=== PATIENT | male | born 1970 | race Caucasian/White ===

== ENCOUNTER 2022-02-02 18:06 | Observation (INO) | payer MEDICARE, SELFPAY ==
[2022-02-02] VITALS (20 sets, daily range): BP systolic 121–146; BP diastolic 65–96; PULSE 67–101; RESP 12–24; TEMP 36.6; O2SAT 96–100
--- NOTE | ~2022-02-02 | XR_ITS ---
EXAMINATION: XR chest 2V DATE: 02/02/2022 18:43 INDICATION: Chest pain. Syncope. TECHNIQUE: Frontal and lateral views of the chest were obtained. COMPARISON: None. FINDINGS: There is mild atelectasis in the lower lung zones. No pleural effusion or pneumothorax. The heart size is normal. IMPRESSION: 1. Mild atelectasis in the lower lung zones. Reviewed, dictated and finalized at location E.
--- NOTE | ~2022-02-02 | CT_ITS ---
EXAMINATION: CTA chest abdomen pelvis DATE: 02/02/2022 22:15 INDICATION: Transient alteration of awareness, chest pressure, abdominal pain TECHNIQUE: Computed tomographic angiography (CTA) of the chest, abdomen, and pelvis was performed wit h 100 mL Omnipque-350 intravenous contrast. Maximum intensity projection 3D-reconstructions of the ao rta and other arteries were constructed by the technologist on a separate workstation. The dose-lengt h product (DLP) was 471.54 mGy-cm. Automated exposure control and iterative reconstruction technique were employed. COMPARISON: None. FINDINGS: CHEST CTA: There is no aneurysm or dissection of the thoracic aorta. There are is mild dependent atelectasis. No pleural effusion or pneumothorax. The lungs are free of focal airspace opacities. No pathologically enlarged thoracic lymph nodes are identified. The heart size is normal. ABDOMEN AND PELVIS CTA: There is no aneurysm or dissection of the abdominal aorta. The celiac axis, superior mesenteric arter y, and inferior mesenteric artery are normal at their origins. The common hepatic artery arises from the superior mesenteric artery. Although limited by respiratory motion, the pancreaticoduodenal arter y also appears to branch from the common hepatic artery. There are single renal arteries. The common iliac, external iliac, and internal iliac arteries are unremarkable. The liver, spleen, pancreas, gal lbladder, and adrenal glands are normal. The kidneys are unremarkable. No pathologically enlarged abd ominal or pelvic lymph nodes are identified. There is no free intraperitoneal gas or evidence of sydnee l obstruction. IMPRESSION: 1. No aneurysm or dissection of the thoracic or abdominal aorta. No acute abnormality of the chest, a bdomen, or pelvis. Reviewed, dictated and finalized at location F. IMPRESSION: 1. No aneurysm or dissection of the thoracic or abdominal aorta. No acute abnor mality of the chest, abdomen, or pelvis.
--- NOTE | ~2022-02-02 | US_ITS ---
EXAMINATION: US carotid duplex BI DATE: 02/03/2022 11:04 INDICATION: Syncopal episode TECHNIQUE: Grayscale, color Doppler, and pulsed Doppler images of the cervical carotid arteries were obtained. The degree of vessel stenosis is placed in one of the following categories: normal, <50%, 5 0-69%, >=70% but less than near-occlusion, near-occlusion, or total occlusion. Note that percent sten osis relative to normal distal artery lumen diameter is indirectly measured from velocity measurement s as described by Sabino, et al. Radiology 2003; 229:340-346. COMPARISON: None. FINDINGS: RIGHT: The right common carotid artery (CCA) peak systolic velocity (PSV) is 133 cm/s. The right internal ca rotid artery (ICA) PSV is 123 cm/s. The right ICA end-diastolic velocity (EDV) is 15 cm/s. The right ICA/CCA PSV ratio is 0.9. Grayscale and color Doppler images yield an estimate of <50% diameter reduc tion from small amount of plaque in the ICA. The external carotid artery (ECA) PSV is 110 cm/s. There is antegrade flow in the right vertebral artery. LEFT: The left CCA PSV is 149 cm/s. The left ICA PSV is 98 cm/s. The left ICA EDV is 23 cm/s. The left ICA/ CCA PSV ratio is 0.7. Grayscale and color Doppler images yield an estimate of <50% diameter reduction from minimal plaque in the ICA. The ECA PSV is 104 cm/s. There is antegrade flow in the left vertebr al artery. IMPRESSION: 1. <50% stenosis from small amount of plaque in the right internal carotid artery. 2. <50% stenosis from minimal plaque in the left internal carotid artery. Reviewed, dictated and finalized at location A. IMPRESSION: 1. <50% stenosis from small amount of plaque in the right internal carotid debby ry. 2. <50% stenosis from minimal plaque in the left internal carotid artery.
--- NOTE | 2022-02-02 18:13 | ECG_ITS ---
Measurements Intervals [place] Rate: 63 P: -10 UT: 123 QRS: 3 QRSD: 89 T: 15 QT: 406 QTc: 418 Interpretive Statements SINUS RHYTHM BORDERLINE T WAVE ABNORMALITY- INFERIOR LEADS BORDERLINE ECG NO PREVIOUS ECG AVAILABLE FOR COMPARISON Electronically Signed On 02-02-2022 21:00:37 CDT by Mani Green D.O.
[2022-02-02 19:00] LABS: Basophils Absolute Auto 0.1 K/mm3 (0.0-0.1); Basophils Percent Auto 2.7 % (0.2-1.2); Eosinophils Absolute Auto 0.1 K/mm3 (0-0.3); Eosinophils Percent Auto 1.2 % (0-4.4); Hematocrit 45.6 % (42.0-52.0); Hemoglobin 14.9 g/dL (14.0-18.0); Immature Granulocyte Absolute 0.02 K/mm3 (0.00-0.031); Immature Granulocyte Percent A 0.4 % (0-0.5); Lymphocytes Percent Auto 23.1 % (18.3-44.2); Mean Corpuscular HGB Conc 32.7 g/dl (32-36); Mean Corpuscular Hemoglobin 32.5 pg (26-34); Mean Corpuscular Volume 99.3 fl (80-100); Mean Platelet Volume 10.5 fl (7.4-10.4); Monocytes Absolute Auto 0.5 K/mm3 (0.1-0.6); Monocytes Percent Auto 9.4 % (2.6-8.5); Neutrophils Absolute Auto 3.3 K/mm3 (1.3-6.7); Neutrophils Percent Auto 63.2 % (45.5-73.1); Platelet Count Result 250 k/mm3 (150-375); Red Blood Count 4.59 M/mm3 (4.6-6.20); Red Cell Distribution Width 14.1 % (11.5-14.5); White Blood Count 5.2 K/mm3 (4.5-10.0)
[2022-02-02 19:10] LABS: Alanine Aminotransferase 23 U/L (6-50); Albumin Level 4.2 g/dL (3.5-5.1); Alkaline Phosphatase 111 U/L (38-126); Anion Gap 8 mmol/L (8-16); Aspartate Amino Transferase 23 U/L (17-59); Bilirubin,Total 0.5 mg/dL (0.2-1.3); Blood Urea Nitrogen 19 mg/dL (9-20); Calcium 9.2 mg/dL (8.4-10.2); Carbon Dioxide 27 mmol/L (22-30); Chloride 107 mmol/L (98-107); Estimated CRCL calculation 41 ml/min; Estimated Glomerular Filt Rate 49; Glucose 127 mg/dL (65-110); Lipase 169 U/L (23-300); Potassium 3.8 mmol/L (3.4-5.0); Sodium 142 mmol/L (137-145)
[2022-02-02 19:16] LABS: Prothrombin Time 13.2 Seconds (11.1-14.7)
[2022-02-02 19:17] LABS: Partial Thromboplastin Time 27.7 SECONDS (22.3-36.8)
[2022-02-02 19:20] LABS: Troponin I < 0.012 ng/mL (0.000-0.034)
--- NOTE | 2022-02-02 19:20 | ED.CHESTPAIN ---
HPI - Chest Pain General Chief Complaint: Chest Pain Stated Complaint: CP Time Seen by Provider: 02/02/22 18:57 History of Present Illness HPI narrative: This is a 51-year-old male past medical history of Down syndrome and gout, brought in by EMS for episode of syncope and chest pain. The patient's father who is at bedside states this morning the patient appeared to be his normal self, waking after a nap, the patient emerged from his room appeared diaphoretic, complaining of chest pain and lost consciousness. Patient has since then been complaining of chest pain. Related Data Allergies Allergy/AdvReac Type Severity Reaction Status Date / Time Contrast Media Allergy Intermediate Unknown Uncoded 02/02/22 18:21 Review of Systems Review of Systems: CONSTITUTIONAL: Denies fever, chills, or sweats. CARDIOVASCULAR: chest pain Denies palpitations, or edema. RESPIRATORY: Denies cough or dyspnea. GASTROINTESTINAL: abdominal pain, Denies nausea, vomiting, or diarrhea. GENITOURINARY: Denies dysuria or hematuria. SKIN: Denies rash or itching. MUSCULOSKELETAL: Denies back pain, joint pain, or myalgia. NEUROLOGIC: Denies headache, numbness, dizziness, or weakness. PSYCHIATRIC: Denies anxiety or depression. Exam Narrative: GENERAL: Appears tired, well-nourished, and in no acute distress. HEAD: Normocephalic, atraumatic. EYES: Left pupil 4 mm, right pupil 2, pupils reactive to light and accommodation, EOMI. ENT: Nares clear, no rhinorrhea or epistaxis. Mucous membranes moist. Oropharynx without tonsillar hypertrophy exudate or other lesions. NECK: Supple. No adenopathy or masses. No carotid bruits or JVD CHEST: Clear to auscultation. No respiratory distress. No wheezes rales or rhonchi HEART: Regular rate and rhythm. No murmur heard. Normal peripheral pulses. ABDOMEN: Soft, nontender, nondistended, normal active bowel sounds. EXTREMITIES: Normal range of motion. No edema. SKIN: Warm, dry, no rash. NEURO: No focal deficits. Alert and oriented x3. PSYCH: Normal mood and affect. Course Course Emergency Course: 22:41 - CT angio negative for dissection or aneurysm. Initial troponin negative. 23:10 - Repeat troponin negative. Discussed findings with the patient's father who is comfortable with admission. Discussed patient with hospitalist, CUSTOMS MANAGER Cris, who accepts admission. Vital Signs Vital signs: Vital Signs Temperature 97.9 F 02/02/22 18:09 Pulse Rate 76 02/02/22 18:09 Respiratory Rate 24 H 02/02/22 18:09 Blood Pressure 126/81 02/02/22 18:09 Pulse Oximetry 96 02/02/22 18:09 Oxygen Delivery Room Air 02/02/22 18:09 Temperature 97.9 F 02/02/22 18:09 Pulse Rate 101 H 02/02/22 23:01 Respiratory Rate 24 H 02/02/22 23:01 Blood Pressure 142/89 H 02/02/22 23:01 Pulse Oximetry 100 02/02/22 20:46 Oxygen Delivery Room Air 02/02/22 18:09 MDM - Chest Pain MDM Narrative Medical decision making narrative: Plan: Labs, imaging, ECG, troponin, reassess Differential Diagnosis Differential diagnosis: Likely atypical chest pain, st elevation myocardial infarction, chest pain and other (PE, dissection, other) Lab Data Result diagrams: 02/02/22 18:52 02/02/22 18:52 Labs: Lab Results 02/02/22 02/02/22 02/02/22 Range/Units 18:52 18:52 18:52 WBC 5.2 (4.5-10.0) K/mm3 RBC 4.59 L (4.6-6.20) M/mm3 Hgb 14.9 (14.0-18.0) g/dL Hct 45.6 (42.0-52.0) % MCV 99.3 (80-100) fl MCH 32.5 (26-34) pg MCHC 32.7 (32-36) g/dl RDW 14.1 (11.5-14.5) % Plt Count 250 (150-375) k/mm3 MPV 10.5 H (7.4-10.4) fl Immature Gran % (Auto) 0.4 (0-0.5) % Neut % (Auto) 63.2 (45.5-73.1) % Lymph % (Auto) 23.1 (18.3-44.2) % [place] % (Auto) 9.4 H (2.6-8.5) % Eos % (Auto) 1.2 (0-4.4) % Baso % (Auto) 2.7 H (0.2-1.2) % Lymph # (Auto) 1.20 (0.9-3.2) K/mm3 [place] # (Auto) 0.5 (0.1-0.6) K/mm3 Eos # (Auto) 0.1 (0-0.3) K/mm3 Baso
[2022-02-02] MEDS: methylPREDNISolone SOD SUCC 40 MG VIAL IV PUSH (19:54)
[2022-02-02] MEDS: diphenhydrAMINE HCl INJ 50 MG/ML VIAL IV PUSH (19:54)
[2022-02-02 22:45] LABS: Troponin I < 0.012 ng/mL (0.000-0.034)
--- NOTE | 2022-02-02 23:16 | PM.IMHP ---
H&P: HPI History of Present Illness Date/Time: 02/02/22 23:16 Chief Complaint: Chest pain Narrative: This is a 51-year-old male patient who resides with his parents he has a history trisomy 21. The patient was brought into the emergency room for syncopal episode and chest pain. According to the father the patient had fallen out of bed and then when he was going to the bathroom the patient fell down again and the father tried to pick him up and stand him up he fell down again. The patient denies any dizziness at this time. According to the father the patient stays up almost all night and watches TV and plays video games. The patient was his normal self this morning but after waking from a nap the patient was diaphoretic and complaining of chest pain and lost consciousness. The patient points to his midsternal area and when I touch his chest he complains of it being sore. Troponins are negative x2. The patient has had no prior history of any heart disease. Patient's creatinine is 1.5 and previously was 1.7. Chest and abdomen pelvis CTA was read as no aneurysm or dissection of the thoracic or abdominal aorta. No acute abnormality of the chest abdomen or pelvis. Chest x-ray was read as mild atelectasis in the lower lung zones. The patient was given Solu-Medrol, aspirin, and Benadryl in the emergency room. The patient is being admitted for observation status on the date of service of 02/02/2022. Review of Systems Review of Systems: See HPI All systems reviewed & are unremarkable except as noted in HPI and below Constitutional: Constitutional: Reports as per HPI and Reports no additional constitutional complaints Eyes: Eyes: Reports as per HPI and Reports no additional eye complaints ENT: Reports system reviewed and no additional complaints, except as documented and Reports Normal hearing present Cardiovascular: Cardiovascular: Reports no additional cardiovascular complaints Respiratory: Respiratory: Reports no additional respiratory complaints and Reports no additional respiratory complaints Gastrointestinal: Gastrointestinal: Reports as per HPI and Reports no additional gastrointestinal complaints Musculoskeletal: Musculoskeletal: Reports no additional musculoskeletal complaints Integumentary/Breasts: Skin/Breast: Reports system reviewed and no additional complaints, except as docu and Reports as per HPI Neurologic: Reports system reviewed and no additional complaints, except as documented, Reports as per HPI and Reports Normal hearing present Psychiatric: Psychiatric: Reports no additional psychiatric complaints and Reports as per HPI Endocrine: Endocrine: Reports no additional endocrine complaints Hematologic/Lymphatic: Hematologic/Lymphatic: Reports no additional hematologic/lymphatic complaints Allergic/Immunologic: Allergic/Immunologic: Reports no additional allergic/immunologic complaints [facility] Past Medical History Medical History (Updated 02/02/22 @ 23:21 by Cris Mendoza NP) CRF (chronic renal failure) Gout Hyperlipidemia Hypothyroidism Trisomy 21 Surgical History Surgical History (Updated 02/02/22 @ 23:20 by Cris Mendoza NP) H/O eye surgery Family History Family History (Updated 02/02/22 @ 23:21 by Cris Mendoza NP) Mother Parkinson disease Father Hypertension Social History Social History (Updated 02/02/22 @ 23:46 by Cris Mendoza NP) Social History: The patient lives with his parents. He has trisomy 21. He does not smoke drink or use marijuana. The patient is disabled. He is single and has no children. His parents are the durable power ip attorney for healthcare. Code status full code Smoking status: Never smoker Meds Home Medications and Allergies Allergies Allergy/AdvReac Type Severity Reaction Status Date / Time Contrast Media Allergy Intermediate Unknown Uncoded 02/02/22 18:21 Vital Signs Vital Signs - 24 hr 02/02/22 18:09 02/02/22 19:22
[2022-02-03] VITALS (18 sets, daily range): BP systolic 114–153; BP diastolic 62–100; PULSE 61–118; RESP 14–18; TEMP 36.3–37.2; O2SAT 97–100; BMI 24.3
--- NOTE | 2022-02-03 | ECHO_ITS ---
Patient Info Name: Tommie Crowe Age: 51 years : 1970 Gender: Male Ht: 62 in Wt: 136 lbs BSA: 1.65 m2 HR: 80 bpm BP: 144 / 87 mmHg Heart Rhythm: Sinus Rhythm Exam Date: 02/03/2022 1:23 PM Exam Location: [facility] Patient Status: Outpatient Admit Date: 02/02/2022 Staff Ordering Physician: Cris Mendoza NP Pharmacy Operations Specialist: Eder Centeno RDCS, RT Attending Provider: Brandon Reyes MD Referring Physician: Reji ALEMAN; Exam Type: CA echo doppler color flow Study Info Indications R55 - Syncope and collapse Complete two-dimensional, color flow and Doppler transthoracic echocardiogram is performed. Strain analysis performed. Summary 1. Complete two-dimensional, color flow and Doppler transthoracic echocardiogram is performed. 2. Left ventricular chamber dimension is normal. 3. Left ventricular systolic function is normal, estimated at 65-70%. 4. There is no increased left ventricular wall thickness. 5. The left ventricular diastolic function is normal. 6. There is mild mitral valve regurgitation. Left Ventricle Left ventricular chamber dimension is normal. Left ventricular systolic function is normal, estimated at 65-70%. There is no increased left ventricular wall thickness. The left ventricular diastolic function is normal. Right Ventricle Right ventricular chamber dimension is normal. Right ventricular systolic function is normal. Left Atria Left atrial chamber dimension is normal. Right Atria Right atrial chamber dimension is normal. Atrial Septum Intact interatrial septum visualized by color flow imaging. Aortic Valve The aortic valve is trileaflet. There is mild aortic valve sclerosis. There is no aortic valve stenosis. There is trace aortic valve regurgitation. Pulmonic Valve The pulmonic valve is normal. There is no pulmonic valve stenosis. There is trace pulmonic regurgitation. Mitral Valve The mitral valve has normal leaflets. There is no mitral valve stenosis. There is mild mitral valve regurgitation. Tricuspid Valve The tricuspid valve leaflets are normal. There is no significant tricuspid valve stenosis. There is trace tricuspid valve regurgitation. Pericardium/Pleural The pericardium appears normal. There is no pericardial effusion. Inferior Vena Cava Normal inferior vena cava with >50% collapse upon inspiration consistent with normal right atrial pressure, 5 mmHg. Aorta The aortic root size at the sinus of Valsalva is normal. Tricuspid Valve Name Value Normal Estimated PAP/RSVP RA Pressure 5 mmHg <=5 Report Signatures
--- NOTE | 2022-02-03 00:15 | ADMGEN ---
This patient, Tommie Crowe, was admitted to IMU Room 200-01. Patient/family oriented to hospital policies and general routines including ID bracelet, bed and alarms, visiting hours, pain management, procedures, bathroom and other care routines, personal items, smoking policy, room service/diet, and visiting hours. Information on how to activate the Rapid Response Team has been discussed. Patient/Family are encouraged to report perceived risks to care and to ask questions if they do not understand what they are told or what they should do.
[2022-02-03] MEDS: SODIUM CHLORIDE 0.9% IV 1,000 ML 50 ML IV CONT ×2 (00:51→19:57)
[2022-02-03] MEDS: methylPREDNISolone SOD SUCC 40 MG VIAL IV PUSH ×4 (00:52→12:32)
[2022-02-03 03:12] LABS: Alanine Aminotransferase 32 U/L (6-50); Albumin Level 4.3 g/dL (3.5-5.1); Alkaline Phosphatase 120 U/L (38-126); Anion Gap 12 mmol/L (8-16); Aspartate Amino Transferase 24 U/L (17-59); Bilirubin,Total 0.5 mg/dL (0.2-1.3); Blood Urea Nitrogen 17 mg/dL (9-20); Calcium 9.6 mg/dL (8.4-10.2); Carbon Dioxide 24 mmol/L (22-30); Chloride 107 mmol/L (98-107); Cholesterol 217 mg/dL (0-200); Estimated CRCL calculation 42 ml/min; Estimated Glomerular Filt Rate 49; Glucose 146 mg/dL (65-110); HDL Direct 62 mg/dL; Magnesium 2.3 mg/dL (1.6-2.3); Potassium 3.9 mmol/L (3.4-5.0); Sodium 143 mmol/L (137-145); Triglycerides 102 mg/dL (<150)
[2022-02-03 03:16] LABS: Lactic Acid Reflex 1.9 mmol/L (0.7-2.0)
[2022-02-03 03:23] LABS: LDL Cholesterol Direct 104 mg/dL
[2022-02-03 03:34] LABS: Troponin I < 0.012 ng/mL (0.000-0.034)
[2022-02-03 04:01] LABS: Thyroid Stimulating Hormone Reflex 0.395 uIU/mL (0.465-4.68)
[2022-02-03 07:08] LABS: Free T4 Free Thyroxine Reflex 1.08 ng/dL (0.78-2.19)
--- NOTE | 2022-02-03 08:52 | PM.IMPN ---
Progress Note: A&P Assessment and Plan (1) Chest pain: Code(s): R07.9 - Chest pain, unspecified Status: Acute Assessment and Plan: -EKG with nonspecific ST-T changes in inferior leads. -Troponin levels negative x 3. -Chest x-ray with mild atelectasis in the lower lung zones. CTA with lungs free of focal airspace opacities. -echo pending -CTA negative for aortic dissection/aneurysm -reproducible chest pain to midsternal area. The patient did follow bed and possibly hit his chest on something. (2) Syncope: Code(s): R55 - Syncope and collapse Status: Acute Assessment and Plan: - orthostatic negative -continue with IV fluids as the patient appears to be dehydrated his lips are dry and his mucous membranes are dry. continue IV fluids -c carotid Dopplers negative Echo pending (3) Gout: Code(s): M10.9 - Gout, unspecified Status: Acute Assessment and Plan: -continue with home medications once they are reconciled. (4) Hypothyroidism: Code(s): E03.9 - Hypothyroidism, unspecified Status: Acute Assessment and Plan: -TSH mildly low free T4 normal -Continue with home medications. (5) CRF (chronic renal failure): Code(s): N18.9 - Chronic kidney disease, unspecified Status: Acute Assessment and Plan: -gently hydrate -recheck labs in the morning. -creatinine appears to be improved from his last reading. (6) Trisomy 21: Code(s): Q90.9 - Down syndrome, unspecified Status: Acute Assessment and Plan: -the patient is able to answer some questions but his father's at the bedside answering questions as well. (7) Hyperlipidemia: Code(s): E78.5 - Hyperlipidemia, unspecified Status: Acute Assessment and Plan: -continue with home medications Plan received contrast dye for CTA however noted allergy hence placed on Solu-Medrol. Is not actively wheezing I any other signs of distress will stop today and monitor Subjective Date/time seen: 02/03/22 08:52 Interval history: HPI: This is a 51-year-old male patient who resides with his parents he has a history trisomy 21.? The patient was brought into the emergency room for syncopal episode and chest pain.? According to the father the patient had fallen out of bed and then when he was going to the bathroom the patient fell down again and the father tried to pick him up and stand him up he fell down again.? The patient denies any dizziness at this time.? According to the father the patient stays up almost all night and watches TV and plays video games.? The patient was his normal self this morning but after waking from a nap the patient was diaphoretic and complaining of chest pain and lost consciousness.? The patient points to his midsternal area and when I touch his chest he complains of it being sore.? Troponins are negative x2.? The patient has had no prior history of any heart disease.? Patient's creatinine is 1.5 and previously was 1.7.? Chest and abdomen pelvis CTA was read as no aneurysm or dissection of the thoracic or abdominal aorta.? No acute abnormality of the chest abdomen or pelvis.? Chest x-ray was read as mild atelectasis in the lower lung zones.? The patient was given Solu-Medrol, aspirin, and Benadryl in the emergency room.? The patient is being admitted for observation status on the date of service of 02/02/2022. 02/06/2022 no overnight events. Feels okay. Hungry. Discussed with the father Review of Systems Review of Systems: All systems reviewed & are unremarkable except as noted in HPI and below Exam Narrative: GENERAL: Appears tired, well-nourished, and in no acute distress. HEAD: Normocephalic, atraumatic. EYES: Left pupil 4 mm, right pupil 2, pupils reactive to light and accommodation, EOMI. ENT: Nares clear, no rhinorrhea or epistaxis.? Mucous membranes moist.? Oropharynx without tonsillar hypertrophy exudate or other lesions. NECK: Supple.?
[2022-02-03 09:15] LABS: Total Triiodothyronine (T3) 5.34 NG/ML (0.97-1.69)
[2022-02-03] MEDS: ACETAMINOPHEN ELIXIR 325 MG/10.15 ML UDC 650 MG PO ×2 (09:40→15:43)
--- NOTE | 2022-02-03 10:43 | PC.NURSE ---
To ultrasound per [Brayan and student nurse Tiana.]
[2022-02-03] MEDS: SIMVASTATIN 20 MG TABLET PO (19:57)
[2022-02-03] MEDS: allopurinoL 100 MG TABLET PO (19:57)
[2022-02-03] MEDS: LEVOTHYROXINE SODIUM 50 MCG TABLET PO (19:58)
[2022-02-04] VITALS (12 sets, daily range): BP systolic 117–145; BP diastolic 69–90; PULSE 56–92; RESP 14–18; TEMP 36.4–37; O2SAT 92–100
[2022-02-04 05:02] LABS: Basophils Percent Auto 0.1 % (0.2-1.2); Hematocrit 40.8 % (42.0-52.0); Hemoglobin 13.7 g/dL (14.0-18.0); Immature Granulocyte Absolute 0.15 K/mm3 (0.00-0.031); Immature Granulocyte Percent A 0.7 % (0-0.5); Lymphocytes Absolute Auto 0.76 K/mm3 (0.9-3.2); Lymphocytes Percent Auto 3.8 % (18.3-44.2); Mean Corpuscular HGB Conc 33.6 g/dl (32-36); Mean Corpuscular Hemoglobin 32.5 pg (26-34); Mean Corpuscular Volume 96.7 fl (80-100); Mean Platelet Volume 11.2 fl (7.4-10.4); Monocytes Absolute Auto 0.5 K/mm3 (0.1-0.6); Monocytes Percent Auto 2.6 % (2.6-8.5); Neutrophils Absolute Auto 18.6 K/mm3 (1.3-6.7); Neutrophils Percent Auto 92.8 % (45.5-73.1); Platelet Count Result 246 k/mm3 (150-375); Red Blood Count 4.22 M/mm3 (4.6-6.20); Red Cell Distribution Width 14.3 % (11.5-14.5)
[2022-02-04 05:22] LABS: Alanine Aminotransferase 41 U/L (6-50); Albumin Level 3.6 g/dL (3.5-5.1); Alkaline Phosphatase 81 U/L (38-126); Anion Gap 11 mmol/L (8-16); Aspartate Amino Transferase 26 U/L (17-59); Bilirubin,Total 0.4 mg/dL (0.2-1.3); Blood Urea Nitrogen 24 mg/dL (9-20); Calcium 8.4 mg/dL (8.4-10.2); Carbon Dioxide 23 mmol/L (22-30); Chloride 109 mmol/L (98-107); Estimated CRCL calculation 48 ml/min; Estimated Glomerular Filt Rate 58; Glucose 128 mg/dL (65-110); Magnesium 2.3 mg/dL (1.6-2.3); Potassium 4.1 mmol/L (3.4-5.0); Sodium 143 mmol/L (137-145)
[2022-02-04 13:22] LABS: Basophils Percent Auto 0.1 % (0.2-1.2); Hematocrit 42.1 % (42.0-52.0); Hemoglobin 14.1 g/dL (14.0-18.0); Immature Granulocyte Absolute 0.15 K/mm3 (0.00-0.031); Immature Granulocyte Percent A 0.6 % (0-0.5); Lymphocytes Percent Auto 5.1 % (18.3-44.2); Mean Corpuscular HGB Conc 33.5 g/dl (32-36); Mean Corpuscular Hemoglobin 32.4 pg (26-34); Mean Corpuscular Volume 96.8 fl (80-100); Mean Platelet Volume 10.8 fl (7.4-10.4); Monocytes Absolute Auto 1.7 K/mm3 (0.1-0.6); Monocytes Percent Auto 7.1 % (2.6-8.5); Neutrophils Absolute Auto 20.3 K/mm3 (1.3-6.7); Neutrophils Percent Auto 87.1 % (45.5-73.1); Platelet Count Result 264 k/mm3 (150-375); Red Blood Count 4.35 M/mm3 (4.6-6.20); Red Cell Distribution Width 14.4 % (11.5-14.5); White Blood Count 23.4 K/mm3 (4.5-10.0)
[2022-02-04 14:56] LABS: Appearance Urine Clear (Clear); Bilirubin Urine Negative (Negative); Blood Urine Negative (Negative); Color Urine Yellow (Yellow); Glucose Urine UA Negative (Negative); Ketones Urine Negative (Negative); Leukocyte Esterase Ur Negative LEU/UL (Negative); Nitrate Urine Negative (Negative); Protein Urine Negative (Negative); Specific Grav Ur 1.025 (1.001-1.035); Urobilinogen Urine 0.2 mg/dL (<2.0)
[2022-02-04 14:58] LABS: Add Urine Microscopic? NO
[2022-02-04] MEDS: CALCIUM CARBONATE (TUMS) 500 MG (200 MG ELEMENTAL) PO (18:01)
--- NOTE | 2022-02-04 18:16 | PM.IMPN ---
Progress Note: A&P Assessment and Plan (1) Chest pain: Code(s): R07.9 - Chest pain, unspecified Status: Acute Assessment and Plan: -EKG with nonspecific ST-T changes in inferior leads. -Troponin levels negative x 3. -Chest x-ray with mild atelectasis in the lower lung zones. CTA with lungs free of focal airspace opacities. -echo unremarkable -CTA negative for aortic dissection/aneurysm -reproducible chest pain to midsternal area. The patient did follow bed and possibly hit his chest on something. (2) Syncope: Code(s): R55 - Syncope and collapse Status: Acute Assessment and Plan: - orthostatic negative -continue with IV fluids as the patient appears to be dehydrated his lips are dry and his mucous membranes are dry. continue IV fluids -c carotid Dopplers negative Echo reviweeed (3) Gout: Code(s): M10.9 - Gout, unspecified Status: Acute Assessment and Plan: -continue with home medications once they are reconciled. (4) Hypothyroidism: Code(s): E03.9 - Hypothyroidism, unspecified Status: Acute Assessment and Plan: -TSH mildly low free T4 normal -Continue with home medications. (5) CRF (chronic renal failure): Code(s): N18.9 - Chronic kidney disease, unspecified Status: Acute Assessment and Plan: -gently hydrate -recheck labs in the morning. -creatinine appears to be improved from his last reading. (6) Trisomy 21: Code(s): Q90.9 - Down syndrome, unspecified Status: Acute Assessment and Plan: -the patient is able to answer some questions but his father's at the bedside answering questions as well. (7) Hyperlipidemia: Code(s): E78.5 - Hyperlipidemia, unspecified Status: Acute Assessment and Plan: -continue with home medications (8) Leukocytosis: Code(s): D72.829 - Elevated white blood cell count, unspecified Status: Acute Assessment and Plan: wrosend. could be related to steroid. no signs of infection anywhere. ua done ad is negative. continue to recheck and monitor Plan received contrast dye for CTA however noted allergy hence placed on Solu-Medrol. Is not actively wheezing I any other signs of distress will stop today and monitor Subjective Date/time seen: 09/08/22 18:16 Interval history: HPI: This is a 51-year-old male patient who resides with his parents he has a history trisomy 21.? The patient was brought into the emergency room for syncopal episode and chest pain.? According to the father the patient had fallen out of bed and then when he was going to the bathroom the patient fell down again and the father tried to pick him up and stand him up he fell down again.? The patient denies any dizziness at this time.? According to the father the patient stays up almost all night and watches TV and plays video games.? The patient was his normal self this morning but after waking from a nap the patient was diaphoretic and complaining of chest pain and lost consciousness.? The patient points to his midsternal area and when I touch his chest he complains of it being sore.? Troponins are negative x2.? The patient has had no prior history of any heart disease.? Patient's creatinine is 1.5 and previously was 1.7.? Chest and abdomen pelvis CTA was read as no aneurysm or dissection of the thoracic or abdominal aorta.? No acute abnormality of the chest abdomen or pelvis.? Chest x-ray was read as mild atelectasis in the lower lung zones.? The patient was given Solu-Medrol, aspirin, and Benadryl in the emergency room.? The patient is being admitted for observation status on the date of service of 02/02/2022. 02/03/2022 no overnight events. Feels okay. Hungry. Discussed with the father 02/04/2022: pt reports some abdominal discomfort. earlier reproted some urinary issues. leukocytosis noted Review of Systems Review of Systems: All systems reviewed & are unremarkable except as n
[2022-02-04] MEDS: LEVOTHYROXINE SODIUM 50 MCG TABLET PO (20:43)
[2022-02-04] MEDS: allopurinoL 100 MG TABLET PO (20:43)
[2022-02-04] MEDS: SIMVASTATIN 20 MG TABLET PO (20:43)
[2022-02-05 06:39] VITALS: BP 128/62; PULSE 51; RESP 14; TEMP 36.6; O2SAT 100
[2022-02-05 08:41] LABS: Basophils Absolute Auto 0.1 K/mm3 (0.0-0.1); Basophils Percent Auto 0.5 % (0.2-1.2); Eosinophils Percent Auto 0.1 % (0-4.4); Hematocrit 44.2 % (42.0-52.0); Hemoglobin 14.6 g/dL (14.0-18.0); Immature Granulocyte Absolute 0.07 K/mm3 (0.00-0.031); Immature Granulocyte Percent A 0.7 % (0-0.5); Lymphocytes Absolute Auto 1.37 K/mm3 (0.9-3.2); Lymphocytes Percent Auto 12.9 % (18.3-44.2); Mean Corpuscular Hemoglobin 31.9 pg (26-34); Mean Corpuscular Volume 96.5 fl (80-100); Mean Platelet Volume 10.6 fl (7.4-10.4); Monocytes Absolute Auto 0.7 K/mm3 (0.1-0.6); Monocytes Percent Auto 6.9 % (2.6-8.5); Neutrophils Absolute Auto 8.4 K/mm3 (1.3-6.7); Neutrophils Percent Auto 78.9 % (45.5-73.1); Platelet Count Result 232 k/mm3 (150-375); Red Blood Count 4.58 M/mm3 (4.6-6.20); Red Cell Distribution Width 14.3 % (11.5-14.5); White Blood Count 10.6 K/mm3 (4.5-10.0)
[2022-02-05 09:00] VITALS: BP 116/58; PULSE 78
[2022-02-05 09:01] LABS: Alanine Aminotransferase 37 U/L (6-50); Albumin Level 3.7 g/dL (3.5-5.1); Alkaline Phosphatase 95 U/L (38-126); Anion Gap 9 mmol/L (8-16); Aspartate Amino Transferase 21 U/L (17-59); Bilirubin,Total 0.5 mg/dL (0.2-1.3); Blood Urea Nitrogen 24 mg/dL (9-20); Calcium 8.7 mg/dL (8.4-10.2); Carbon Dioxide 24 mmol/L (22-30); Chloride 107 mmol/L (98-107); Estimated CRCL calculation 48 ml/min; Estimated Glomerular Filt Rate 58; Glucose 92 mg/dL (65-110); Magnesium 2.3 mg/dL (1.6-2.3); Potassium 3.6 mmol/L (3.4-5.0); Sodium 140 mmol/L (137-145)
[2022-02-05 09:04] VITALS: BP 117/75; PULSE 79
[2022-02-05 09:08] VITALS: BP 108/70; PULSE 81
--- NOTE | 2022-02-05 09:30 | PM.DS ---
DS: Admitting Diagnosis Discharge Date 02/05/2022 Admitting Diagnosis Chest pain/fall DS: Discharge Diagnosis Discharge Diagnosis (1) Chest pain: Code(s): R07.9 - Chest pain, unspecified Status: Acute (2) Syncope: Code(s): R55 - Syncope and collapse Status: Acute (3) Gout: Code(s): M10.9 - Gout, unspecified Status: Acute (4) Hypothyroidism: Code(s): E03.9 - Hypothyroidism, unspecified Status: Acute (5) CRF (chronic renal failure): Code(s): N18.9 - Chronic kidney disease, unspecified Status: Acute (6) Trisomy 21: Code(s): Q90.9 - Down syndrome, unspecified Status: Acute (7) Hyperlipidemia: Code(s): E78.5 - Hyperlipidemia, unspecified Status: Acute DS: Summary Hospital Course Hospital Course: # chest pain: -EKG with nonspecific ST-T changes in inferior leads.? -Troponin levels negative x 3. -Chest x-ray with mild atelectasis in the lower lung zones.? CTA with lungs free of focal airspace opacities. -echo unremarkable -CTA negative for aortic dissection/aneurysm -reproducible chest pain to midsternal area.? The patient did follow bed and possibly hit his chest on something. # possible syncope/collapse - orthostatic negative -continue with IV fluids as the patient appears to be dehydrated his lips are dry and his mucous membranes are dry. continue IV fluids -c carotid Dopplers negative Echo unremarkable # Gout: -continue with home medications once they are reconciled. # hypothyroidism: -TSH mildly low free T4 normal -Continue with home medications. # CKD stage 3: -gently hydrate -recheck labs with slight improvement likely some acute component as well. # Trisomy 21: -the patient is able to answer some questions but his father's at the bedside answering questions as well. # hyperlipidemia: -continue with home medications # reported contrast dye allergy: ?received contrast dye for CTA however noted allergy hence placed on Solu-Medrol.? Is not actively wheezing or any other signs of distress steroid was stopped. # leukocytosis worsened to 20 K and further to 23 K. likely due to steroid . monitor to hospital stay was down to 10 K without any intervention. Likely steroid induced as previously noted. Time Spent with Patient Time attestation: Total time spent providing and/or coordinating discharge services: 45 minutes Exam Narrative: GENERAL: Appears tired, well-nourished, and in no acute distress. HEAD: Normocephalic, atraumatic. EYES: pupils reactive to light and accommodation, EOMI. ENT: Nares clear, no rhinorrhea or epistaxis.? Mucous membranes moist.? Oropharynx without tonsillar hypertrophy exudate or other lesions. NECK: Supple.? No adenopathy or masses.? No carotid bruits or JVD CHEST: Clear to auscultation.? No respiratory distress.? No wheezes rales or rhonchi HEART: Regular rate and rhythm.? No murmur heard.? Normal peripheral pulses. ABDOMEN: Soft, nontender, nondistended, normal active bowel sounds. EXTREMITIES: Normal range of motion.? No edema. SKIN: Warm, dry, no rash. NEURO: No focal deficits.? Alert and oriented x3. PSYCH: Normal mood and affect. DS: Data Data Completed and Pending Labs on day of discharge: Labs from last 24 hours 02/04/22 02/04/22 04:17 04:17 WBC 20.0 H RBC 4.22 L Hgb 13.7 L Hct 40.8 L MCV 96.7 MCH 32.5 MCHC 33.6 RDW 14.3 Plt Count 246 MPV 11.2 H Immature Gran % (Auto) 0.7 H Neut % (Auto) 92.8 H Lymph % (Auto) 3.8 L [place] % (Auto) 2.6 Eos % (Auto) 0.0 Baso % (Auto) 0.1 L Lymph # (Auto) 0.76 L [place] # (Auto) 0.5 Eos # (Auto) 0.0 Baso # (Auto) 0.0 Abs Immat Gran (auto) 0.15 H Absolute Neuts (auto) 18.6 H Absolute Nucleated RBC 0.0 Nucleated RBC % 0.0 Sodium 143 Potassium 4.1 Chloride 109 H Carbon Dioxide 23 Anion Gap 11 BUN 24 H Creatinine 1.30 Estim Creat Clear Calc 48 Estimated GFR 58 L
[2022-02-05] MEDS: CALCIUM CARBONATE (TUMS) 500 MG (200 MG ELEMENTAL) PO (10:35)
== END 2022-02-05 11:25 | disposition home or self-care (01) ==
LOC: ANHED 23:11 → ANHIMU 02-03 00:05 → ANH2MED 02-04 18:10
PROVIDERS: Emergency Medicine; Nurse Practitioner; Admitting Provider Internal Medicine; Emergency Provider Preventive Medicine Aerospace Medicine; PCP Family Medicine; Visit Provider Internal Medicine
DX: R07.9 Chest pain, unspecified (principal); R55 Syncope and collapse; W06.XXXA Fall from bed, initial encounter; I65.23 Occlusion and stenosis of bilateral carotid arteries; D72.829 Elevated white blood cell count, unspecified; N18.30 Chronic kidney disease, stage 3 unspecified; Q90.9 Down syndrome, unspecified; E78.5 Hyperlipidemia, unspecified; E03.9 Hypothyroidism, unspecified; M10.9 Gout, unspecified; I34.0 Nonrheumatic mitral (valve) insufficiency
CPT/HCPCS: 36415; 71046; 71275; 74174; 80053; 80061; 81003; 83605; 83690; 83735; 84439; 84443; 84480; 84484; 85025; 85610; 85730; 93005; 93306; 93880; 96361; 96374; 96375; 96376; 97161; 97165; 99285; A9270; G0378; J1200; J2920; J7030; Q9967